=== PATIENT | male | born 1980 | race Caucasian/White ===

== ENCOUNTER 2019-03-26 22:22 | Observation (INO) ==
[2019-03-26] MEDS ORDERED: Dexamethasone 4 MG/ML VIAL IVP ONE (23:02)
[2019-03-26] MEDS ORDERED: Ipratropium/Albuterol Neb 3 ML IH ONE (23:02)
[2019-03-26] MEDS ORDERED: ALPRAZolam 0.25 MG TABLET PO ONE (23:04)
--- NOTE | 2019-03-26 23:04 | Emergency Department Note ---
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 Patient states that he has not been feeling well for the past several weeks, and 2 days ago he went to the pharmacy and picked up some azithromycin and prednisone. Normally the prednisone house with his shortness of breath but he did not feel any better yesterday or today. This morning he felt much worse and feels as though he cannot catch his breath. He denies fever, chills, increased cough, chest pain, abdominal pain, nausea and vomiting. He was 18 he had to have open heart surgery to remove his pericardium secondary to pericardial effusion. He also has asthma and anxiety. He does still smoke on a daily basis. - Related Data Home Medications Medication Instructions Recorded Confirmed Alprazolam [Xanax] 0.5 mg PO BID 09/10/15 03/26/19 Albuterol Sulfate [Proair Hfa] 2 puff IH Q4-6H PRN 03/19/19 03/26/19 Cholecalciferol (Vitamin D3) 50,000 unit PO QWEEK 03/19/19 03/26/19 [Vitamin D3] Fexofenadine/Pseudoephedrine 1 each PO DAILY 03/19/19 03/26/19 [Delmis-D 24 Hour Tablet] Ipratropium/Albuterol Neb [Duoneb] 3 ml IH Q6HR PRN 03/19/19 03/26/19 Montelukast [Singulair] 10 mg PO DAILY 03/19/19 03/26/19 Omeprazole [PriLOSEC] 20 mg PO DAILY 03/19/19 03/26/19 Ondansetron HCl [Zofran] 4 mg PO Q6-8H PRN 03/19/19 03/26/19 Tizanidine HCl [Zanaflex] 4 mg PO TID PRN 03/19/19 03/26/19 lamoTRIgine [Lamictal] 150 mg PO DAILY 03/19/19 03/26/19 Azithromycin [Zithromax] 1 tab PO DAILY 03/26/19 03/26/19 PredniSONE [Deltasone] 80 mg PO DAILY 03/26/19 03/26/19 Allergies Allergy/AdvReac Type Severity Reaction Status Date / Time Amoxicillin Allergy Rash Verified 03/26/19 22:36 Sulfa (Sulfonamide Allergy Swelling Verified 03/26/19 22:36 Antibiotics) of Lip/Tongue/Throat morphine AdvReac See Verified 03/26/19 22:36 Comments quetiapine [From Seroquel] AdvReac See Verified 03/26/19 22:36 Comments All systems ED: reviewed and negative except as stated. Review of Systems: As Per HPI Constitutional: Reports: chills, weakness. Denies: fever Cardiovascular: Reports: dyspnea on exertion. Denies: chest pain, palpitations, orthopnea, edema Respiratory: Reports: dyspnea, wheezes. Denies: cough, hemoptysis, stridor, sputum production Gastrointestinal: Denies: abdominal pain, nausea, vomiting Genitourinary: Denies: dysuria, hematuria Musculoskeletal: Denies: back pain Integumentary: Denies: rash Psychiatric: Reports: anxiety Past Medical History - Past Medical History Attestation: Yes The following information was validated with the patient. Source: patient, old records reviewed Medical history: Reports: asthma, COPD, hypertension Surgical history: Reports: other (pericardiumectomy at age 18) Psychiatric history: Reports: anxiety - Social History Smoking Status: Current every day smoker Smokeless Tobacco Status: No Alcohol use: Reports: none Drug use: Reports: none Physical Exam - General Limitations: no limitations General appearance: alert, in distress (mild distress) - Head Head exam: atraumatic, normocephalic - Eye Eye exam: Present: normal appearance, EOMI - ENT ENT exam: normal exam, normal oropharynx - Neck Neck exam: Present: normal inspection. Absent: tenderness, lymphadenopathy - Chest Chest inspection: Present: normal inspection. Absent: tenderness, rash - Respiratory Respiratory exam: Present: wheezes, other (crackles throughout all lung agosto) - Cardiovascular Cardiovascular exam: Present: regular rate, normal rhythm - Abdominal Exam Abdominal exam: Present: soft, Non-Tender. Absent: distention, guarding, rebound, rigidity - Extremities Exam Extremities exam: Present: normal inspection. Absent: tenderness, pedal edema, calf tenderness - Neurological Exam Neurological exam: Present: alert, oriented X3 - Psychiatric Psychiatric exam: Present: anxious - Skin Skin exam: Present: warm, dry, intact Course Vital Signs Temperature 98 F 03/26/19 22:30 Pulse Rate 89 03/26/19 22:30 Respiratory Rate 20 03/26/19 22:30 Blood Pressure 159/94 03/26/19 22:30 O2 Sat by Pulse Oximetry 99 03/26/19 22:30 Temperature 97.7 F 03/27/19 07:34 Pulse Rate 75 03/27/19 07:34 Respiratory Rate 12 03/27/19 07:59 Blood Pressure 132/78 03/27/19 07:34 O2 Sat by Pulse Oximetry 92 03/27/19 07:59 Oxygen Delivery Oxygen Delivery Room Air Shortness of Breath/Dyspnea - [facility] Narrative Medical decision making narrative: Patient presents with complaints of increased shortness of breath from baseline but his been progressing over the past several days. He is oriented been taking azithromycin and prednisone for the past 2 days but this has not helped. Patient is able to speak in full sentences without having to stop and catch his breath. His pulse ox is not depressed and his heart rate is within normal limits. We will obtain basic laboratory, chest x-ray, EKG and treat the patient shortness of breath with 2 nebs. Patient will get a shot of Decadron while here to see if I steroids will help with his breathing difficulties. 0035 - patient's lab work, EKG and chest x-ray are unremarkable. He is not feeling any better after his 3 duo nebs and the IV steroids. We will give him a dose of IV mag and do a CTA of his chest for a better look at his lungs and to rule out pulmonary embolus. Patient then will be admitted to the hospitalist service for further management of his acute dyspnea. 0050 - patient has been accepted by the hospitalist at this time. - Medical Records Medical records reviewed: Yes I reviewed the patient's medical records. - Lab Data Lab results reviewed: Yes I reviewed the patient's lab results. Result diagrams: 03/27/19 07:51 03/27/19 07:51 Lab Results 03/26/19 03/26/19 03/26/19 Range/Units 23:15 23:15 23:15 WBC 7.1 (4.3-11.1) K/mcL RBC 4.50 (4.19-5.50) M/mcL Hgb 14.4 (12.9-16.9) g/dL Hct 42.6 (37.5-50.1) % MCV 94.7 (83.0-100.0) fL MCH 32.0 (28.0-33.3) pg MCHC 33.8 (31.6-35.5) g/dL RDW 13.4 (11.5-14.5) % Plt Count 227 (140-400) K/mcL MPV 9.5 (9.4-12.4) fL Immature Gran % 0.4 (0-4) % Seg Neutrophils % 87.0 % Lymphocytes % 9.1 % Monocytes % 3.5 % Eosinophils % 0.0 % Basophils % 0.0 % Neutrophils # 6.2 (1.6-8.9) K/mcL Lymphocytes # 0.7 (0.6-4.6) K/mcL Monocytes # 0.3 (0.0-1.3) K/mcL Eosinophils # 0.0 (0.0-0.6) K/mcL Basophils # 0.0 (0.0-0.2) K/mcL Sodium 141 (136-145) mEq/L Potassium 3.7 (3.5-5.1) mEq/L Chloride 111 H (98-107) mEq/L Carbon Dioxide 22 L (23-29) mEq/L BUN 15 (6-20) mg/dL Creatinine 0.77 (0.70-1.30) mg/dL Est GFR ( Amer) > 60 (> 60) Est GFR (Non-Af Amer) > 60 (> 60) BUN/Creatinine Ratio 19 (6-26) Glucose 168 H (70-105) mg/dL Calculated Osmolality 297 (280-300) Calcium 9.1 (8.6-10.3) mg/dL Troponin I < 0.03 (< 0.04) ng/mL B-Natriuretic Peptide 237 H (Less than 100) pg/mL - Radiology Data Radiology results reviewed: Yes I reviewed the patient's radiology results. - EKG Data EKG attestation: Yes I reviewed and interpreted this EKG. EKG results narrative: EKG obtained at 22:34 on 03/26/2019 Heart rate 87 bpm, UT interval 113, QRS duration 90, QT 345, QTc 389 Sinus rhythm with shortened UT interval. No signs of ST segment elevations or depressions. No other obvious T-wave abnormalities. QRS is not widened. No significant changes when compared to previous EKG dated 03/19/2019. Attestation Statement - Attestation Attestation: I have seen this patient with the resident physician, I have personally evaluated this patient. I had reviewed the chart and document dictation by the resident physician and aM in agreement with the information documented by the resident physician. Please see documentation by the resident physician for comp lete chart including past medical history, family medical history, review of systems, current history and physical and laboratory and imaging studies. I was present for all procedures, provided direct supervision for all procedures, was present for the entirety of all procedures and provided direct guidance during the procedures. Please see documentation by the resident physician for any procedures performed. I have reviewed all interpretations of EKGs, and reviewed all EKGs performed on patient's as well. I have also reviewed reports of imaging as provided by radiology.
[2019-03-26 23:54] LABS: BUN/Creatinine Ratio 19 (6-26); Blood Urea Nitrogen 15 mg/dL (6-20); Calcium 9.1 mg/dL (8.6-10.3); Carbon Dioxide 22 mEq/L (23-29); Chloride 111 mEq/L (98-107); Glucose 168 mg/dL (70-105); Osmolality,Calculated 297 (280-300); Potassium 3.7 mEq/L (3.5-5.1); Sodium 141 mEq/L (136-145); eGFR For African Americans > 60 (> 60); eGFR For Non-African Americans > 60 (> 60)
[2019-03-26 23:55] LABS: Troponin I < 0.03 ng/mL (< 0.04)
[2019-03-26 23:59] LABS: Hematocrit 42.6 % (37.5-50.1); Hemoglobin 14.4 g/dL (12.9-16.9); Immature Granulocytes % 0.4 % (0-4); Lymphocytes # 0.7 K/mcL (0.6-4.6); Lymphocytes % 9.1 %; Mean Corpuscular HGB Conc 33.8 g/dL (31.6-35.5); Mean Corpuscular Volume 94.7 fL (83.0-100.0); Mean Platelet Volume 9.5 fL (9.4-12.4); Monocytes # 0.3 K/mcL (0.0-1.3); Monocytes % 3.5 %; Neutrophils # 6.2 K/mcL (1.6-8.9); Platelet Count 227 K/mcL (140-400); Red Cell Distribution Width 13.4 % (11.5-14.5); White Blood Count 7.1 K/mcL (4.3-11.1)
[2019-03-27] MEDS ORDERED: Isovue-370 500 ML BOTTLE IVP ONE (00:21)
[2019-03-27] MEDS ORDERED: cefTRIAXone 2,000 MG in Water for inj. (sterile) 20 ML IVP ONE (00:54)
--- NOTE | 2019-03-27 00:55 | Emergency Department Note ---
Disposition Clinical Impression: Acute exacerbation of chronic obstructive airways disease, Acute dyspnea, Flecw-[id number] deficiency Disposition: Admitted As Inpatient Condition: Fair Referrals: Faviola Thomas APN [Primary Care Provider] - Forms: ED Satisfaction Letter Time of Disposition: 00:56 General Adult HPI - General Chief complaint: ED Shortness of Breath/Dyspnea Stated complaint: MARYLOU Time Seen by Provider: 03/26/19 22:29 Source: patient Mode of arrival: ambulatory Limitations: no limitations - History of Present Illness Pain Scale: 6 - Related Data Home Medications Medication Instructions Recorded Confirmed Alprazolam [Xanax] 0.5 mg PO BID 09/10/15 03/26/19 Albuterol Sulfate [Proair Hfa] 2 puff IH Q4-6H PRN 03/19/19 03/26/19 Cholecalciferol (Vitamin D3) 50,000 unit PO QWEEK 03/19/19 03/26/19 [Vitamin D3] Fexofenadine/Pseudoephedrine 1 each PO DAILY 03/19/19 03/26/19 [Delmis-D 24 Hour Tablet] Ipratropium/Albuterol Neb [Duoneb] 3 ml IH Q6HR PRN 03/19/19 03/26/19 Montelukast [Singulair] 10 mg PO DAILY 03/19/19 03/26/19 Omeprazole [PriLOSEC] 20 mg PO DAILY 03/19/19 03/26/19 Ondansetron HCl [Zofran] 4 mg PO Q6-8H PRN 03/19/19 03/26/19 Tizanidine HCl [Zanaflex] 4 mg PO TID PRN 03/19/19 03/26/19 lamoTRIgine [Lamictal] 150 mg PO DAILY 03/19/19 03/26/19 Azithromycin [Zithromax] 1 tab PO DAILY 03/26/19 03/26/19 PredniSONE [Deltasone] 80 mg PO DAILY 03/26/19 03/26/19 Allergies Allergy/AdvReac Type Severity Reaction Status Date / Time Amoxicillin Allergy Rash Verified 03/26/19 22:36 Sulfa (Sulfonamide Allergy Swelling Verified 03/26/19 22:36 Antibiotics) of Lip/Tongue/Throat morphine AdvReac See Verified 03/26/19 22:36 Comments quetiapine [From Seroquel] AdvReac See Verified 03/26/19 22:36 Comments Constitutional: Reports: chills, weakness. Denies: fever Cardiovascular: Reports: dyspnea on exertion. Denies: chest pain, palpitations, orthopnea, edema Respiratory: Reports: dyspnea, wheezes. Denies: cough, hemoptysis, stridor, sputum production Gastrointestinal: Denies: abdominal pain, nausea, vomiting Genitourinary: Denies: dysuria, hematuria Musculoskeletal: Denies: back pain Integumentary: Denies: rash Psychiatric: Reports: anxiety Past Medical History - Past Medical History Medical history: Reports: asthma, COPD, hypertension Surgical history: Reports: other (pericardiumectomy at age 18) Psychiatric history: Reports: anxiety - Social History Smoking Status: Current every day smoker Smokeless Tobacco Status: No Alcohol use: Reports: none Drug use: Reports: none Physical Exam - General Limitations: no limitations General appearance: alert, in distress (mild distress) Course Vital Signs Temperature 98 F 03/26/19 22:30 Pulse Rate 89 03/26/19 22:30 Respiratory Rate 20 03/26/19 22:30 Blood Pressure 159/94 03/26/19 22:30 O2 Sat by Pulse Oximetry 99 03/26/19 22:30 Temperature 98 F 03/26/19 22:30 Pulse Rate 93 03/26/19 23:02 Respiratory Rate 24 03/26/19 23:02 Blood Pressure 159/95 03/26/19 23:02 O2 Sat by Pulse Oximetry 97 03/26/19 23:02 Oxygen Delivery Oxygen Delivery Room Air Medical Decision Making - Lab Data Result diagrams: 03/26/19 23:15 03/26/19 23:15 Lab Results 03/26/19 03/26/19 03/26/19 Range/Units 23:15 23:15 23:15 WBC 7.1 (4.3-11.1) K/mcL RBC 4.50 (4.19-5.50) M/mcL Hgb 14.4 (12.9-16.9) g/dL Hct 42.6 (37.5-50.1) % MCV 94.7 (83.0-100.0) fL MCH 32.0 (28.0-33.3) pg MCHC 33.8 (31.6-35.5) g/dL RDW 13.4 (11.5-14.5) % Plt Count 227 (140-400) K/mcL MPV 9.5 (9.4-12.4) fL Immature Gran % 0.4 (0-4) % Seg Neutrophils % 87.0 % Lymphocytes % 9.1 % Monocytes % 3.5 % Eosinophils % 0.0 % Basophils % 0.0 % Neutrophils # 6.2 (1.6-8.9) K/mcL Lymphocytes # 0.7 (0.6-4.6) K/mcL Monocytes # 0.3 (0.0-1.3) K/mcL Eosinophils # 0.0 (0.0-0.6) K/mcL Basophils # 0.0 (0.0-0.2) K/mcL Sodium 141 (136-145) mEq/L Potassium 3.7 (3.5-5.1) mEq/L Chloride 111 H (98-107) mEq/L Carbon Dioxide 22 L (23-29) mEq/L BUN 15 (6-20) mg/dL Creatinine 0.77 (0.70-1.30) mg/dL Est GFR ( Amer) > 60 (> 60) Est GFR (Non-Af Amer) > 60 (> 60) BUN/Creatinine Ratio 19 (6-26) Glucose 168 H (70-105) mg/dL Calculated Osmolality 297 (280-300) Calcium 9.1 (8.6-10.3) mg/dL Troponin I < 0.03 (< 0.04) ng/mL B-Natriuretic Peptide 237 H (Less than 100) pg/mL Attestation Statement - Attestation Attestation: I have seen this patient with the resident physician, I have personally evaluated this patient. I had reviewed the chart and document dictation by the resident physician and aM in agreement with the information documented by the resident physician. Please see documentation by the resident physician for complete chart including past medical history, family medical history, review of systems, current history and physical and laboratory and imaging studies. I was present for all procedures, provided direct supervision for all procedures, was present for the entirety of all procedures and provided direct guidance during the procedures. Please see documentation by the resident physician for any procedures performed. I have reviewed all interpretations of EKGs, and reviewed all EKGs performed on patient's as well. I have also reviewed reports of imaging as provided by radiology. Patient presented emergency department with chief complaint of shortness of breath. He states that he has a history of COPD and bronchitis, he was a 3-1/2 pack a day smoker, down to half pack. He states that he is having progressive lung problems for a couple of years finally convinced his doctor sent him to a fiscal manager, fiscal manager saw him, he is seen him a few times, recently had tests that confirmed that he has alpha-1 antitrypsin disorder. He states typically when he gets steroids and antibiotics every now again when he flares up that he can do very well he states that over the last few days he touches progressive increasing shortness of breath which is very unusual he started on steroids and Zithromax as called in by his fiscal manager but states it is no better. Patient had diffuse coarse wheezes auscultated throughout his lungs, prolonged expiratory phase, tachypnea without retractions or accessory muscle use. Cardiovascular regular rate and rhythm no murmurs rubs or gallops or JVD. No peripheral edema no evidence of DVT. Patient was given breathing treatments, and steroids with no significant improvement of his symptoms, slightly improved aeration was still diffuse terrible sounds throughout his lungs with coarseness all throughout his lungs. He had already had Zithromax today he was given 1 dose of IV Rocephin on top of this, he is given IV magnesium as well. Secondary to the patient not having any recent CT imaging, and him reporting that his fiscal manager also wants him to have a CT with IV contrast which he has not had so a CT PE protocol was ordered to further define acute intrathoracic processes and the patient was admitted to the hospital for further evaluation and management, the hospitalist will follow up on CT scan findings, as well as my colleague emergency department and will notify the hospitalist.
[2019-03-27] MEDS ORDERED: Naloxone 0.4 MG/ML INJ IVP PRN (05:56)
--- NOTE | 2019-03-27 06:03 | Internal Med History&Physical ---
Date of Encounter: 03/27/19 Time of Encounter: 04:30 Internal Medicine - H&P: HPI Chief complaint: Shortness of breath Admitted From: Home Plans for Post Hospital Care: Home History of present illness: Mr. Nicole is a 38 year old male with past medical history significant for COPD, asthma, alpha-1 antitrypsin deficiency, chronic back pain, anxiety, and PTSD who presents for complaints of worsening shortness of breath. Follows regularly with pulmonology who started him on prednisone and azithromycin 2 days ago which normally improves his symptoms however states his symptoms continues to worsen. Shortness of breath is associated with productive cough with white/yellow frothy sputum. Also reports chest pain with cough. Reports shortness of breath is worse with exertion. ER reported EKG as sinus rhythm with short OR interval, no signs of ST segment elevations or depressions, no other obvious T-wave abnormalities, and no significant changes when compared to previous EKG. ER obtained chest x-ray which showed no acute abnormality. ER also obtained CTA of the chest which was negative for acute pulmonary embolism, advanced centrilobular and paraseptal emphysema with bullous deformity, diffuse airway inflammation with dependent airway secretions query aspiration risk, and previously seen clustered nodularity in the left lower lobe which has resolved. While in ER patient received breathing treatment, ceftriaxone, decadron, and magnesium and he reports slight improvement in his symptoms. Patient currently denies any headache, chest pain, abdominal pain, nausea, bowel or bladder changes. Follows regularly with PCP, pulmonology, orthopedics, and psychiatry. Denies any home oxygen use, although he reports currently being set up for home oxygen. Reports continuing to smoke cigarettes daily, however has decreased down to around a half pack per day. Past Med Surg Social Fam HX - Past Medical History Medical history: asthma, COPD, hypertension Additional medical history: Emphysema. alpha 1 antitrypsin deficiency. chronic back pain Psychiatric history: anxiety, PTSD - Past Surgical History Surgical History: other (pericardiumectomy at age 18) Additional surgical history: Pericarderectomy, umbilical hernia repair - Social History Smoking Status: Current every day smoker Smokeless Tobacco Status: No Alcohol use: none Drug use: none - Family History Mother Adopted: No Living Status: Still Living Hx Family Cardiac Disorders: No Hx Family Respiratory Disorders: Yes (Ashtma, COPD) Hx Family Cancer: Yes (brain cancer, mother's family) Hx Family GI Disorders: No Hx Family Genitourinary Disorders: No Hx Family Endocrine Disorder: Yes (DM) Hx Family Musculoskeletal Disorders: No Hx Family Neuromuscular Disorders: No Hx Family Neurologic Disorders: No Hx Family HEENT Disorders: No Hx Family Autoimmune Disorders: Yes (A1 antitrypsin deficiency) Hx Family Reproductive Disorders: No Hx Family Psychosocial Disorders: No Hx Family Medical Disorders: No Internal Medicine - H&P: Meds Alprazolam [Xanax] 0.5 mg PO BID 09/10/15 [History] Albuterol Sulfate [Proair Hfa] 2 puff IH Q4-6H PRN 03/19/19 [History] Cholecalciferol (Vitamin D3) [Vitamin D3] 50,000 unit PO QWEEK 03/19/19 [History] Fexofenadine/Pseudoephedrine [Delmis-D 24 Hour Tablet] 1 each PO DAILY 03/19/19 [History] Ipratropium/Albuterol Neb [Duoneb] 3 ml IH Q6HR PRN 03/19/19 [History] Montelukast [Singulair] 10 mg PO DAILY 03/19/19 [History] Omeprazole [PriLOSEC] 20 mg PO DAILY 03/19/19 [History] Ondansetron HCl [Zofran] 4 mg PO Q6-8H PRN 03/19/19 [History] Tizanidine HCl [Zanaflex] 4 mg PO TID PRN 03/19/19 [History] lamoTRIgine [Lamictal] 150 mg PO DAILY 03/19/19 [History] Azithromycin [Zithromax] 1 tab PO DAILY 03/26/19 [History] PredniSONE [Deltasone] 80 mg PO DAILY 03/26/19 [History] Allergy/AdvReac Type Severity Reaction Status Date / Time Amoxicillin Allergy Rash Verified 03/26/19 22:36 Sulfa (Sulfonamide Allergy Swelling Verified 03/26/19 22:36 Antibiotics) of Lip/Tongue/Throat morphine AdvReac See Verified 03/26/19 22:36 Comments quetiapine [From Seroquel] AdvReac See Verified 03/26/19 22:36 Comments All Systems PM: A 10-system review of systems was performed and is negative for pertinent findings except as documented above in the HPI. - Constitutional Vitals: Temp Pulse Resp BP Pulse Ox 97.8 F 91 16 136/85 95 03/27/19 03:24 03/27/19 03:24 03/27/19 03:24 03/27/19 03:24 03/27/19 03:24 Exam: General: Alert and oriented. In no acute distress. Skin:Normal color, no rash, no lesions. HEENT:Pupils equal, round and reactive. Cardiovascular:Normal S1 & S2, no rubs, murmurs or gallops. No JVD. Pulse regular. Lungs:Breath sounds decreased, wheezes noted throughout. Respirations non labored. Abdomen:Soft, non-tender, no rigidity. Extremities:No deformity, no edema or tenderness, no joint swelling or clubbing. Neurological:Normal cognition and motor skills. Pulses:Carotid and radial pulses normal +2. Rest of the physical exam is non contributory. Internal Med - H&P Results - Labs CBC & Chem 7: 03/26/19 23:15 03/26/19 23:15 Labs: Short CBC 03/26/19 Range/Units 23:15 WBC 7.1 (4.3-11.1) K/mcL Hgb 14.4 (12.9-16.9) g/dL Hct 42.6 (37.5-50.1) % Plt Count 227 (140-400) K/mcL Neutrophils # 6.2 (1.6-8.9) K/mcL BMP 03/26/19 23:15 Sodium 141 Potassium 3.7 Chloride 111 H Carbon Dioxide 22 L BUN 15 Creatinine 0.77 Glucose 168 H Calcium 9.1 Cardiac Enzymes 03/26/19 Range/Units 23:15 Troponin I < 0.03 (< 0.04) ng/mL - Impressions ITS Impressions Chest X-Ray 03/26/19 22:37 IMPRESSION: No acute abnormality detected. D/ / Cristobal Gibson MD / Cristobal Gibson MD Interpreting Provider: Cristobal Gibson MD Chest CTA 03/27/19 00:21 IMPRESSION: Negative for acute pulmonary embolism. Advanced centrilobular and paraseptal emphysema with bullous deformity. Diffuse airway inflammation with dependent airways secretions. Query aspiration risk. Previously seen clustered nodularity in the left lower lobe has resolved. D/ / Waldemar Cortez / Waldemar Cortez Interpreting Provider: Waldemar Cortez - Assessment and Plan (1) Shortness of breath Current Visit: Yes Status: Acute Assessment and plan: Continuous cardiac and pulse oximetry monitoring. Oxygen as needed. IV steroids given in ER, continue same. DuoNeb was given in ER, continue same. Ceftriaxone started in ER, will continue same. Pulmonary consult ordered, will need called in a.m. (2) Acute exacerbation of chronic obstructive airways disease Current Visit: Yes Status: Acute Assessment and plan: Plan as stated above. (3) Anxiety Current Visit: Yes Status: Chronic Assessment and plan: Continue home medications once verified. (4) Hypertension Current Visit: Yes Status: Chronic Assessment and plan: Continue home medications once verified. Qualifiers: Hypertension type: unspecified Qualified Code(s): I10 - Essential (primary) hypertension (5) Tobacco abuse Current Visit: Yes Status: Chronic Assessment and plan: Cessation strongly encouraged. Nicorette gum ordered as needed. - Time Spent With Patient Total time spent is greater than 50% in coordination of care (as documented) at patient's floor/unit and/or counseling patient:
--- NOTE | 2019-03-27 06:36 | Pulmonology Consult Note ---
Date of Encounter: 03/27/19 Time of Encounter: 06:36 Assessment and Plan (1) Acute exacerbation of chronic obstructive airways disease Current Visit: Yes Status: Acute Appears to be improving continue IV steroids today methylprednisolone 60 mg every 8 hours and this can be transitioned to oral prednisone to complete a prolonged six-week taper starting at 40 mg and taper by 10 mg weekly I will continue to taper and determine how long when I see him back in clinic. He should be on Symbicort 160/4.52 puffs twice a day while here in the hospital and will need DuoNeb bronchodilator treatments scheduled every 4 hours with hourly albuterol as needed. Agree with azithromycin for anti-inflammatory properties in addition of set off a respiratory infection panel would also send protocol calcitonin sputum culture as well (2) Uwhrj-1-jxwkianetgv deficiency Current Visit: Yes Status: Acute I would over in great detail the diagnosis and management of alpha-1 antitrypsin deficiency plan is to start augmentation therapy but likely to be qualified for program patient would have to have stop smoking. He will also need PFTs performed (3) Tobacco abuse Current Visit: Yes Status: Chronic I had the an extensive conversation with the patient and his along with mother in the room today explaining that it is truly a matter life and that Escobar stop smoking we have started the process of getting him covered for a nicotine replacement would recommend nicotine patch while in the hospital as he has not tolerated the gum very well but has been ordered for him. Also be imperative that his anxiety is fully managed high in order to facilitate his tobacco cessation (4) Anxiety Current Visit: Yes Status: Chronic Continue to follow up with outpatient psychiatrist Thank you very much for consultation I will check in on Scott tomorrow to see how he is doing can likely be discharged tomorrow if feeling better and I will follow-up with clinic visits within 2 weeks at the time of discharge History of Present Illness Consult date: 03/27/19 Requesting physician: Jadiel Salazar Reason for consult: COPD Chief complaint: Difficulty in Breathing History of present illness: The patient is a very pleasant 38-year-old gentleman well-known to me to perform clinic where I am 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 Patient is only 38 years of age and has extensive emphysematous changes tests are pending at this time but expect advanced obstructive lung disease. Un fortunately the patient continues to smoke heavily field and large part by his anxiety he is trying desperately to quit smoking however and has been able to get down under a half a pack a day. He follows with a psychiatrist over the [place] is also been working on his antianxiety medications. As a part of evaluation for hit the severity of his underlying emphysematous changes in his lung I sent off alpha-1 antitrypsin level with reflex genetic testing this came back, PiZZ homozygous and his alpha-1 level was less than 25 this diagnosis was made last week and I notified the patient plan was for clinic follow-up today to discuss the results and next steps and he had been describing to me on the phone yesterday that he is having worsening shortness of breath to straight using a macrolide antibiotic and oral prednisone I told him if his breathing symptoms have gotten worse overnight to go immediately to the emergency room and that is when he did workup there included a CT angiogram was performed without evidence of filling defect patient has been treated for COPD exacerbation pulmonary was consulted for further recommendations. In speaking with her today he states that he is breathing a lot better after getting IV steroids and breathing treatments he does have a cough but is nonproductive at this time denies any hemoptysis he does not endorse unintentional weight loss and this has been an ongoing issue for him for several months. Past Med Surg Social Fam HX - Past Medical History Medical history: asthma, COPD, hypertension Additional medical history: Emphysema. alpha 1 antitrypsin deficiency. chronic back pain Psychiatric history: anxiety, PTSD - Past Surgical History Surgical History: other (pericardiumectomy at age 18) Additional surgical history: Pericarderectomy, umbilical hernia repair - Social History Smoking Status: Current every day smoker Smokeless Tobacco Status: No Alcohol use: none Drug use: none - Family History Mother Adopted: No Living Status: Still Living Hx Family Cardiac Disorders: No Hx Family Respiratory Disorders: Yes (Ashtma, COPD) Hx Family Cancer: Yes (brain cancer, mother's family) Hx Family GI Disorders: No Hx Family Genitourinary Disorders: No Hx Family Endocrine Disorder: Yes (DM) Hx Family Musculoskeletal Disorders: No Hx Family Neuromuscular Disorders: No Hx Family Neurologic Disorders: No Hx Family HEENT Disorders: No Hx Family Autoimmune Disorders: Yes (A1 antitrypsin deficiency) Hx Family Reproductive Disorders: No Hx Family Psychosocial Disorders: No Hx Family Medical Disorders: No Medications and Allergies Alprazolam [Xanax] 0.5 mg PO BID 09/10/15 [History] Albuterol Sulfate [Proair Hfa] 2 puff IH Q4-6H PRN 03/19/19 [History] Cholecalciferol (Vitamin D3) [Vitamin D3] 50,000 unit PO QWEEK 03/19/19 [History] Fexofenadine/Pseudoephedrine [Delmis-D 24 Hour Tablet] 1 each PO DAILY 03/19/19 [History] Ipratropium/Albuterol Neb [Duoneb] 3 ml IH Q6HR PRN 03/19/19 [History] Montelukast [Singulair] 10 mg PO DAILY 03/19/19 [History] Omeprazole [PriLOSEC] 20 mg PO DAILY 03/19/19 [History] Ondansetron HCl [Zofran] 4 mg PO Q6-8H PRN 03/19/19 [History] Tizanidine HCl [Zanaflex] 4 mg PO TID PRN 03/19/19 [History] lamoTRIgine [Lamictal] 150 mg PO DAILY 03/19/19 [History] Azithromycin [Zithromax] 1 tab PO DAILY 03/26/19 [History] PredniSONE [Deltasone] 80 mg PO DAILY 03/26/19 [History] Allergy/AdvReac Type Severity Reaction Status Date / Time Amoxicillin Allergy Rash Verified 03/26/19 22:36 Sulfa (Sulfonamide Allergy Swelling Verified 03/26/19 22:36 Antibiotics) of Lip/Tongue/Throat morphine AdvReac See Verified 03/26/19 22:36 Comments quetiapine [From Seroquel] AdvReac See Verified 03/26/19 22:36 Comments All Systems: The remainder of the systems were reviewed and are negative Physical Examination Vital Signs: Vital Signs, Last 4 Hours Temp Pulse Resp BP Pulse Ox 03/27/19 03:24 97.8 F 91 16 136/85 95 General appearance: no acute distress Eyes: nonicteric ENT: oropharynx moist Auscultation: bilateral: diminished breath sounds, wheezes (prolonged exp phase ) Cardiovascular: regular rate and rhythm Gastrointestinal: normoactive bowel sounds, absent bowel sounds, hypoactive bowel sounds Integumentary: normal Extremities: no cyanosis, no edema, no clubbing Musculoskeletal: no deformities normal mental status, non-focal exam, pupils equal and round mood appropriate Results - Laboratory Findings CBC and BMP: 03/27/19 07:51 03/27/19 07:51 Abnormal lab findings: Abnormal lab results Chloride 111 mEq/L (98-107) H 03/26/19 23:15 Carbon Dioxide 22 mEq/L (23-29) L 03/26/19 23:15 Glucose 168 mg/dL (70-105) H 03/26/19 23:15 B-Natriuretic Peptide 237 pg/mL (Less than 100) H 03/26/19 23:15 - Diagnostic Findings Chest x-ray: report reviewed, image reviewed CT scan - chest: report reviewed, image reviewed - Clinical Findings Intake & Output: Intake & Output 03/26/19 03/26/19 03/27/19 15:59 23:59 07:59 Intake Total 154 / 154 Balance 154 / 154 Weight 69.853 kg 70.364 kg Consult Discharge Plan - Plan Referrals: Faviola Thomas APN [Primary Care Provider] -
[2019-03-27] MEDS: Ipratropium/Albuterol Neb 3 ML IH SCH ×5 (07:59→23:48)
[2019-03-27 08:05] LABS: Hematocrit 42.3 % (37.5-50.1); Hemoglobin 14.3 g/dL (12.9-16.9); Immature Granulocytes % 0.5 % (0-4); Lymphocytes # 0.6 K/mcL (0.6-4.6); Lymphocytes % 5.7 %; Mean Corpuscular HGB Conc 33.8 g/dL (31.6-35.5); Mean Corpuscular Hemoglobin 31.9 pg (28.0-33.3); Mean Corpuscular Volume 94.4 fL (83.0-100.0); Mean Platelet Volume 9.5 fL (9.4-12.4); Monocytes # 0.1 K/mcL (0.0-1.3); Monocytes % 1.1 %; Neutrophils # 9.4 K/mcL (1.6-8.9); Platelet Count 220 K/mcL (140-400); Red Blood Count 4.48 M/mcL (4.19-5.50); Red Cell Distribution Width 13.4 % (11.5-14.5); Segmented Neutrophils % 92.7 %; White Blood Count 10.1 K/mcL (4.3-11.1)
[2019-03-27 08:22] LABS: BUN/Creatinine Ratio 17 (6-26); Blood Urea Nitrogen 12 mg/dL (6-20); Calcium 8.7 mg/dL (8.6-10.3); Carbon Dioxide 24 mEq/L (23-29); Chloride 109 mEq/L (98-107); Glucose 191 mg/dL (70-105); Osmolality,Calculated 291 (280-300); Potassium 3.5 mEq/L (3.5-5.1); Sodium 138 mEq/L (136-145); eGFR For African Americans > 60 (> 60); eGFR For Non-African Americans > 60 (> 60)
[2019-03-27] MEDS: Nicotine 2 MG GUM BC PRN ×2 (10:23→20:07)
[2019-03-27] MEDS: Azithromycin 250 MG TABLET PO SCH (10:23)
[2019-03-27] MEDS: Nicotine 21 MG PATCH.TD24 TD SCH ×2 (10:47→14:39)
--- NOTE | 2019-03-27 12:26 | Event Note ---
Date of Encounter: 03/27/19 Time of Encounter: 12:25 Patient states that his breathing is somewhat better today. He denies any fevers or chills overnight. Shortness of breath has improved overall. No chest pain or palpitations. Patient requesting nicotine gum instead of nicotine patch.
--- NOTE | 2019-03-27 12:39 | Electrocardiograph Report ---
[facility] [place] Test Date: 2019-03-26 Pat Name: Escobar Nicole Department: 104 Room: 3B24 Gender: M General Partner: : 1980 Requested By: Mattie Wagner Order Number: [id number] Reading MD: Pancho Espinosa Measurements Intervals [place] Rate: 87 P: 66 MN: 113 QRS: 62 QRSD: 90 T: 36 QT: 345 QTc: 389 Interpretive Statements SINUS RHYTHM Electronically Signed On 03-27-2019 12:38:04 EDT by Pancho Espinosa
[2019-03-27] MEDS ORDERED: Ondansetron ODT 4 MG TAB.RAPDIS PO PRN (13:05)
[2019-03-27] MEDS: lamoTRIgine 100 MG TABLET PO SCH (13:49)
[2019-03-27] MEDS: tiZANidine 4 MG TABLET PO PRN ×2 (13:57→22:15)
[2019-03-27] MEDS: ALPRAZolam 1 MG TABLET PO SCH ×2 (14:39→22:15)
[2019-03-27 19:41] LABS: Adenovirus Not Detected (Not Detect); Bordetella Pertussis Not Detected (Not Detect); Chlamydophila pneumoniae Not Detected (Not Detect); Coronavirus 229E Not Detected (Not Detect); Coronavirus HKU1 Not Detected (Not Detect); Coronavirus NL63 Not Detected (Not Detect); Coronavirus OC43 Not Detected (Not Detect); Human Metapneumovirus Not Detected (Not Detect); Human Rhinovirus/Enterovirus Not Detected (Not Detect); Influenza A Subtype 2009 H1 Not Detected (Not Detect); Influenza A Untypeable Not Detected (Not Detect); Influenza B Not Detected (Not Detect); Mycoplasma pneumoniae Not Detected (Not Detect); Parainfluenza Virus 1 Not Detected (Not Detect); Parainfluenza Virus 2 Not Detected (Not Detect); Parainfluenza Virus 3 Not Detected (Not Detect); Parainfluenza Virus 4 Not Detected (Not Detect); Respiratory Syncytial Virus Not Detected (Not Detect)
[2019-03-27] MEDS ORDERED: ALPRAZolam 1 MG TABLET PO SCH (21:00)
[2019-03-27] MEDS ORDERED: NON-FORMULARY MEDICATION 1 EACH EACH (Fluticasone/Umeclidin/Vilanter [Trelegy Ellipta 100- IH SCH (21:00)
[2019-03-27] MEDS: Budesonide/Formoterol 160/4.5 1 PUFF INH IH SCH (22:18)
[2019-03-28] MEDS: methylPREDNISolone 125 MG/2 ML VIAL IVP SCH ×3 (00:32→17:56)
[2019-03-28] MEDS: Ipratropium/Albuterol Neb 3 ML IH SCH ×7 (04:49→23:35)
[2019-03-28] MEDS ORDERED: cefTRIAXone 2,000 MG in Water for inj. (sterile) 20 ML IVP SCH (06:00)
--- NOTE | 2019-03-28 06:59 | Pulmonology Progress Note ---
Date of Encounter: 03/28/19 Time of Encounter: 06:59 Assessment and Plan (1) Acute exacerbation of chronic obstructive airways disease Current Visit: Yes Status: Acute Continue IV steroids today he will need to be transitioned in the next 24 hours to oral formulation of prednisone for a 6 weeks taper starting at 40 mg and decreasing by 10 mg weekly Continue schedule bronchodilators Symbicort 160/4.52 puffs twice a day Albuterol as needed hourly (2) Aslei-0-utxkbfifrdb deficiency Current Visit: Yes Status: Acute Plan to initiate augmentation therapy (3) Tobacco abuse Current Visit: Yes Status: Chronic Strongly encouraged the patient to remain tobacco free this is essentially a life or necessity (4) Anxiety Current Visit: Yes Status: Chronic Currently controlled outpatient follow-up with psychiatry Subjective Principal diagnosis: AECOPD Interval history: Per the patient had "burned some popcorn last night" than the smoke and caused his breathing to worse he is coughing up more phlegm today and feels that his breathing is in general not as good as it was yesterday. He has been intermittently using a nicotine patch with nicotine chewing gum after meals Objective PUL Vital signs: Last Vital Signs Temp 97.5 F L 03/28/19 00:09 Pulse 89 03/28/19 00:09 Resp 17 03/28/19 04:50 BP 134/83 03/28/19 00:09 Pulse Ox 99 03/28/19 04:50 General appearance: no acute distress Eyes: nonicteric ENT: oropharynx moist Auscultation: bilateral: diminished breath sounds, wheezes (exp wheezes noted ) Cardiovascular: regular rate and rhythm Gastrointestinal: normoactive bowel sounds Integumentary: normal Extremities: no cyanosis, no edema, no clubbing Musculoskeletal: no deformities normal mental status, non-focal exam mood appropriate Results - Laboratory Findings CBC and BMP: 03/27/19 07:51 03/27/19 07:51 Abnormal lab findings: Abnormal lab results 9.4 K/mcL (1.6-8.9) H 03/27/19 07:51 Chloride 109 mEq/L (98-107) H 03/27/19 07:51 Carbon Dioxide 22 mEq/L (23-29) L 03/26/19 23:15 Glucose 191 mg/dL (70-105) H 03/27/19 07:51 B-Natriuretic Peptide 237 pg/mL (Less than 100) H 03/26/19 23:15 - Microbiology Findings Microbiology Findings: Microbiology, Last 48 Hours 03/27/19 07:52 Blood Culture - Preliminary Peripheral Venipuncture Culture is incubating and being continuously monitored for growth. Final report to follow. 03/27/19 07:51 Blood Culture - Preliminary Peripheral Venipuncture Culture is incubating and being continuously monitored for growth. Final report to follow. - Clinical Findings Intake & Output: Intake & Output 03/27/19 03/27/19 03/28/19 15:59 23:59 07:59 Intake Total 500 / 894 240 / 894 Balance 500 / 894 240 / 894 Weight 70.5 kg Consult Discharge Plan - Plan Referrals: Faviola Thomas APN [Primary Care Provider] - 03/31/19 4:30 pm
[2019-03-28] MEDS: Budesonide/Formoterol 160/4.5 1 PUFF INH IH SCH ×2 (07:22→20:21)
[2019-03-28] MEDS: lamoTRIgine 100 MG TABLET PO SCH (08:09)
[2019-03-28] MEDS: Nicotine 21 MG PATCH.TD24 TD SCH (08:10)
[2019-03-28] MEDS: Azithromycin 250 MG TABLET PO SCH (08:12)
[2019-03-28] MEDS: ALPRAZolam 1 MG TABLET PO SCH ×2 (08:12→21:15)
[2019-03-28] MEDS: tiZANidine 4 MG TABLET PO PRN ×2 (08:12→21:16)
[2019-03-28] MEDS ORDERED: Ibuprofen 800 MG TABLET PO PRN (09:30)
[2019-03-28] MEDS: Nicotine 2 MG GUM BC PRN ×4 (10:05→23:46)
--- NOTE | 2019-03-28 11:18 | Internal Med Progress Note ---
Hospitalist Progress Note - Encounter Date of Encounter: 03/28/19 Time of Encounter: 08:35 - Subjective Interval History: Patient complaints of worsening shortness of breath this morning. Apparently his had some popcorn in the microwave which got burnt and he has had some trouble breathing since then but it is now improving. He did receive bronch odilator treatments earlier today. He does report cough with minimal phlegm. - Exam Vitals: Temp Pulse Resp BP Pulse Ox 97 F L 101 18 121/75 100 03/28/19 10:15 03/28/19 10:15 03/28/19 10:15 03/28/19 10:15 03/28/19 10:15 Exam: General: Patient is alert, moderate distress, oriented x 3 Respiratory: End expiratory wheezing Cardiovascular: Regular rate and rhythm. s1 and s2 normal No clicks, rubs, gallops, or murmurs. No pedal edema Abdomen: Abdomen is soft, nontender. Bowel sounds are present Musculoskeletal: Spontaneously moving all extremities Skin: warm, dry, intact. Neuro: Alert oriented x 3 normal cranial nerves, no focal deficits - Assessment and Plan (1) Acute exacerbation of chronic obstructive airways disease Current Visit: Yes Status: Acute (2) Shortness of breath Current Visit: Yes Status: Acute (3) Tobacco abuse Current Visit: Yes Status: Chronic (4) Anxiety Current Visit: Yes Status: Chronic (5) Hypertension Current Visit: Yes Status: Chronic DVT Prophylaxis: Started subcutaneous heparin - Summary of Assessment and Plan Summary of Assessment and Plan: Acute exacerbation of COPD: With underlying alpha-1 antitrypsin deficiency. Patient also has a chronic smoking history. Continue bronchodilators, Symbicort, intravenous steroids. As patient reports worsening shortness of breath today, will leave patient on intravenous steroids today and transition to oral steroids from tomorrow. Pulmonology recommendations reviewed. Plan to discharge patient on a long tapering course of steroids when medically stable. Continue azithromycin. Chronic tobacco abuse: Counseled about cessation. Patient willing to quit. Is currently on nicotine patch and nicotine gum. Essential hypertension: Blood pressure is well controlled. Anxiety disorder: Continue home dose of Xanax. Outpatient follow-up with psychiatry and possibly starting Wellbutrin as outpatient to help both for anxiety and with tobacco cessation. - Time Spent with Patient Total time spent is greater than 50% in coordination of care (as documented) at patient's floor/unit and/or counseling patient: Internal Medicine: Result - Labs CBC & Chem 7: 03/27/19 07:51 03/27/19 07:51 Consult Discharge Plan - Plan Referrals: Faviola Thomas APN [Primary Care Provider] - 03/31/19 4:30 pm (5) Hypertension Qualifiers: Hypertension type: unspecified Qualified Code(s): I10 - Essential (primary) hypertension
[2019-03-28] MEDS ORDERED: ALPRAZolam 0.5 MG TABLET PO STA (16:15)
[2019-03-28] MEDS: *HR* Heparin 5,000 UNIT/ML VIAL SQ SCH (18:08)
[2019-03-28] MEDS: Ibuprofen 600 MG TABLET PO PRN (20:26)
[2019-03-28] MEDS ORDERED: Patient Taking Own Medication 1 EACH PO SCH (21:00)
[2019-03-28] MEDS: Loratadine/Pseudophed (12 HR) 1 EACH TABLET PO SCH (21:16)
[2019-03-28] MEDS: Lactobacillus 1 EACH CAP.SPRINK PO SCH (21:16)
[2019-03-29] MEDS: tiZANidine 4 MG TABLET PO PRN ×2 (02:33→09:43)
[2019-03-29] MEDS: Ipratropium/Albuterol Neb 3 ML IH SCH ×4 (03:58→15:11)
[2019-03-29] MEDS: methylPREDNISolone 125 MG/2 ML VIAL IVP SCH (06:13)
[2019-03-29] MEDS: *HR* Heparin 5,000 UNIT/ML VIAL SQ SCH (06:14)
--- NOTE | 2019-03-29 06:36 | Pulmonology Progress Note ---
Date of Encounter: 03/29/19 Time of Encounter: 06:36 Assessment and Plan (1) Acute exacerbation of chronic obstructive airways disease Current Visit: Yes Status: Acute Continue IV steroids today he will need to be transitioned in the next 24 hours to oral formulation of prednisone for a 6 weeks taper starting at 40 mg and decreasing by 10 mg weekly (have called this into his pharmacy) Continue schedule bronchodilators Symbicort 160/4.52 puffs twice a day Albuterol as needed hourly Azithromycin 5 days (2) Yefrb-4-qbxgcimzbcm deficiency Current Visit: Yes Status: Acute Plan to initiate augmentation therapy (3) Tobacco abuse Current Visit: Yes Status: Chronic Strongly encouraged the patient to remain tobacco free this is essentially a life or necessity (4) Anxiety Current Visit: Yes Status: Chronic Currently controlled outpatient follow-up with psychiatry I have a follow-up appointment scheduled with Escobar in the next couple weeks in clinic and will take care of his outpatient arrangements he is cleared for discharge from pulmonary perspective thank you for the consultation Subjective Principal diagnosis: AECOPD Interval history: Tells me that he is feeling a little bit better today he is interested in trying to get back home today and feels that he is ready Objective PUL Vital signs: Last Vital Signs Temp 97.8 F 03/29/19 03:34 Pulse 95 03/29/19 03:34 Resp 16 03/29/19 03:34 BP 134/83 03/29/19 03:34 Pulse Ox 97 03/29/19 03:34 General appearance: no acute distress Eyes: nonicteric Auscultation: bilateral: wheezes (Expiratory wheezes with a prolonged expiratory phase) Cardiovascular: regular rate and rhythm Gastrointestinal: normoactive bowel sounds, soft, non-tender Integumentary: normal Extremities: no cyanosis, no edema, no clubbing Musculoskeletal: no deformities normal mental status, non-focal exam mood appropriate Results - Laboratory Findings CBC and BMP: 03/27/19 07:51 03/27/19 07:51 Abnormal lab findings: Abnormal lab results 9.4 K/mcL (1.6-8.9) H 03/27/19 07:51 Chloride 109 mEq/L (98-107) H 03/27/19 07:51 Carbon Dioxide 22 mEq/L (23-29) L 03/26/19 23:15 Glucose 191 mg/dL (70-105) H 03/27/19 07:51 B-Natriuretic Peptide 237 pg/mL (Less than 100) H 03/26/19 23:15 - Microbiology Findings Microbiology Findings: Microbiology, Last 48 Hours 03/27/19 07:52 Blood Culture - Preliminary Peripheral Venipuncture Culture is incubating and being continuously m onitored for growth. Final report to follow. 03/27/19 07:51 Blood Culture - Preliminary Peripheral Venipuncture Culture is incubating and being continuously monitored for growth. Final report to follow. - Clinical Findings Intake & Output: Intake & Output 03/28/19 03/28/19 03/29/19 15:59 23:59 07:59 Intake Total 600 / 600 Balance 600 / 600 Consult Discharge Plan - Plan Referrals: Faviola Thomas APN [Primary Care Provider] - 03/31/19 4:30 pm
[2019-03-29] MEDS: Budesonide/Formoterol 160/4.5 1 PUFF INH IH SCH (07:23)
[2019-03-29] MEDS: Loratadine/Pseudophed (12 HR) 1 EACH TABLET PO SCH (09:28)
[2019-03-29] MEDS: Nicotine 21 MG PATCH.TD24 TD SCH (09:28)
[2019-03-29] MEDS: lamoTRIgine 100 MG TABLET PO SCH (09:29)
[2019-03-29] MEDS: ALPRAZolam 1 MG TABLET PO SCH ×2 (09:29→15:02)
[2019-03-29] MEDS: Azithromycin 250 MG TABLET PO SCH (09:29)
[2019-03-29] MEDS: Lactobacillus 1 EACH CAP.SPRINK PO SCH (09:29)
[2019-03-29] MEDS: Nicotine 2 MG GUM BC PRN ×2 (09:43→15:02)
--- NOTE | 2019-03-29 11:16 | Discharge Summary ---
- NOTES TO OUTPATIENT PROVIDER Notes to Outpatient Provider: Patient with history of COPD and newly diagnosed alpha-1 antitrypsin deficiency was hospitalized here with acute COPD exacerbation. He was treated with bronchodilators, steroids and initially also required O2 supplementation. He was also prescribed azithromycin to help treat his COPD exacerbation. With aggressive management, his symptoms have improved. He has been cleared for discharge by pulmonology and will follow up with them as outpatient. He will continue to take slow taper of steroids and will complete 5 day course of azithromycin. Orders not resulted at time of discharge: Pending orders 03/27/19 06:24 Sputum Culture [Culture,Sputum with Gram Stain] [RM] Routine 03/27/19 07:52 Culture,Blood [BC] Routine Date of Encounter: 03/29/19 Time of Encounter: 11:13 - Discharge Diagnosis (1) Acute exacerbation of chronic obstructive airways disease Priority: Primary Status: Acute (2) Shortness of breath Priority: Secondary Status: Acute (3) Tobacco abuse Priority: Secondary Status: Chronic (4) Anxiety Priority: Secondary Status: Chronic (5) Hypertension Priority: Secondary Status: Chronic Qualifiers: Hypertension type: unspecified Qualified Code(s): I10 - Essential (primary) hypertension (6) Fubmv-8-dgbbrbqzaqa deficiency Priority: Secondary Status: Chronic Hospital course: Mr. Nicole is a 38 year old male Patient with history of COPD and newly diagnosed alpha-1 antitrypsin deficiency was hospitalized here with acute COPD exacerbation. He was treated with bronchodilators, steroids and initially also required O2 supplementation. He was also prescribed azithromycin to help treat his COPD exacerbation. With aggressive management, his symptoms have improved. He has been cleared for discharge by pulmonology and will follow up with them as outpatient. He will continue to take slow taper of steroids ( 6 week taper starting at 40 mg and decreasing by 10 mg weekly) and will complete 5 day course of azithromycin. Discharge discussed with: patient, family - Time Spent with Patient Total time spent providing and/or coordinating discharge services: Time spent: Less than 30 minutes (25 min) - Discharge Medications Prescriptions: New Lactobacillus [Culturelle] 1 each PO BID #30 cap.sprink Continued PredniSONE [Deltasone] 40 mg PO DAILY Azithromycin [Zithromax] 1 tab PO DAILY Fexofenadine HCl 180 mg PO DAILY Fluticasone/Umeclidin/Vilanter [Trelegy Ellipta 100-62.5-25] 1 puff IH DAILY Fexofenadine/Pseudoephedrine [Delmis-D 24 Hour Tablet] 1 each PO DAILY Alprazolam [Xanax] 0.5 mg PO BID Tizanidine HCl [Zanaflex] 4 mg PO TID PRN PRN Reason: Muscle Spasm Ondansetron HCl [Zofran] 4 mg PO TID PRN PRN Reason: Nausea Omeprazole [PriLOSEC] 20 mg PO DAILY Montelukast [Singulair] 10 mg PO DAILY lamoTRIgine [Lamictal] 150 mg PO DAILY Ipratropium/Albuterol Neb [Duoneb] 3 ml IH Q6HR PRN PRN Reason: Wheezing Albuterol Sulfate [Proair Hfa] 2 puff IH Q4-6H PRN PRN Reason: Wheezing Cholecalciferol (Vitamin D3) [Vitamin D3] 50,000 unit PO TH Home Medications: Alprazolam [Xanax] 0.5 mg PO BID 09/10/15 [History] Albuterol Sulfate [Proair Hfa] 2 puff IH Q4-6H PRN 03/19/19 [History] Cholecalciferol (Vitamin D3) [Vitamin D3] 50,000 unit PO TH 03/19/19 [History] Ipratropium/Albuterol Neb [Duoneb] 3 ml IH Q6HR PRN 03/19/19 [History] Montelukast [Singulair] 10 mg PO DAILY 03/19/19 [History] Omeprazole [PriLOSEC] 20 mg PO DAILY 03/19/19 [History] Ondansetron HCl [Zofran] 4 mg PO TID PRN 03/19/19 [History] Tizanidine HCl [Zanaflex] 4 mg PO TID PRN 03/19/19 [History] lamoTRIgine [Lamictal] 150 mg PO DAILY 03/19/19 [History] Azithromycin [Zithromax] 1 tab PO DAILY 03/26/19 [History] PredniSONE [Deltasone] 40 mg PO DAILY 03/26/19 [History] Fexofenadine HCl 180 mg PO DAILY 03/27/19 [History] Fluticasone/Umeclidin/Vilanter [Trelegy Ellipta 100-62.5-25] 1 puff IH DAILY 03/27/19 [History] Fexofenadine/Pseudoephedrine [Delmis-D 24 Hour Tablet] 1 each PO DAILY 03/28/19 [History] Lactobacillus [Culturelle] 1 each PO BID #30 cap.sprink 03/29/19 [Rx] Allergies/Adverse Reactions: 3 Allergy/AdvReac Type Severity Reaction Status Date / Time Amoxicillin Allergy Rash Verified 03/26/19 22:36 Sulfa (Sulfonamide Allergy Swelling Verified 03/26/19 22:36 Antibiotics) of Lip/Tongue/Throat morphine AdvReac See Verified 03/26/19 22:36 Comments quetiapine [From Seroquel] AdvReac See Verified 03/26/19 22:36 Comments Date of admission: 03/27/19 00:59 Primary care physician: Faviola Thomas APN Consults: 03/27/19 03:38 Consult to [employer] [CONS] Routine Reason for SW Consult: home O2 03/27/19 05:58 Consult to Pulmonology [CONS] Routine Consulting Provider: [facility] Carolyn Reason for Consult: Presents for worsening shortness of breath. History of COPD with alpha one antitrypsin deficiency. Follows regularly with Dr Gao and was started on azithromycin and prednisone outpatient 2 days ago without improvement. Call Completed: No 03/27/19 08:14 Consult to Nurse Navigator [CONS] Routine Comment: COPD Discharging clinician: Tasneem Harris Anticipated date of discharge: 03/29/19 - Constitutional Vitals: Temp Pulse Resp BP Pulse Ox 97.6 F 92 18 130/71 96 03/29/19 07:51 03/29/19 07:51 03/29/19 10:53 03/29/19 07:51 03/29/19 10:53 Exam: General: Patient is alert, no acute distress, oriented x 3 Respiratory: Mild end expiratory wheezing. Improved air entry bilaterally Cardiovascular: Regular rate and rhythm. s1 and s2 normal No clicks, rubs, gallops, or murmurs. No pedal edema Abdomen: Abdomen is soft, nontender. Bowel sounds are present Musculoskeletal: Spontaneously moving all extremities Skin: warm, dry, intact. Neuro: Alert oriented x 3 normal cranial nerves, no focal deficits - Patient Status Disposition: Home, Self-Care Condition: Good Functional capacity at discharge: independent ambulation Overall status at discharge: patient is progressing back to baseline - Discharge Instructions Instructions: Chronic Obstructive Pulmonary Disease (DC) Follow Up With: Faviola Thomas APN [Primary Care Provider] - 03/31/19 4:30 pm Jeramie Gao MD [Partnered Physician] - (In 1-2 weeks) - Diet and Activity Activity: increase activity as tolerated Diet: advance to your usual diet
[2019-03-29 11:41] VITALS: BP 124/74
[2019-03-29] MEDS: Ibuprofen 600 MG TABLET PO PRN (15:02)
--- NOTE | 2019-03-31 15:56 | Electrocardiograph Report ---
[address] [address] Test Date: 2019-03-29 Pat Name: Escobar Nicole Department: 113 Room: 3B24 Gender: M Cane Cutter: : 1980 Requested By: Tasneem Harris Order Number: [id number] Reading MD: Tae Horowitz Measurements Intervals [place] Rate: 89 P: 59 [place]: 117 QRS: 59 QRSD: 82 T: 63 QT: 334 QTc: 381 Interpretive Statements SINUS RHYTHM WITH SHORT IA INTERVAL Electronically Signed On 03-31-2019 15:55:10 EDT by Tae Horowitz
== END 2019-03-29 16:52 | disposition home or self-care (01) ==
LOC: EMEROOARM 22:22 → 3BNU 22:22 → SUATTDRO 03-27 00:59 → 3BNU 03-27 02:33
PROVIDERS: ADMIT Pediatrics; ATTEND Internal Medicine

== ENCOUNTER 2021-01-08 17:08 | Inpatient (IN) ==
[2021-01-08 17:49] LABS: Basophils # 0.1 K/mcL (0.0-0.2); Basophils % 0.6 %; Eosinophils # 0.1 K/mcL (0.0-0.6); Eosinophils % 0.7 %; Hematocrit 45.3 % (37.5-50.1); Hemoglobin 15.3 g/dL (12.9-16.9); Immature Granulocytes % 0.8 % (0-4); Lymphocytes # 0.6 K/mcL (0.6-4.6); Lymphocytes % 5.9 %; Mean Corpuscular HGB Conc 33.8 g/dL (31.6-35.5); Mean Corpuscular Hemoglobin 30.7 pg (28.0-33.3); Mean Corpuscular Volume 90.8 fL (83.0-100.0); Mean Platelet Volume 8.6 fL (9.4-12.4); Monocytes # 0.5 K/mcL (0.0-1.3); Monocytes % 4.8 %; Neutrophils # 8.4 K/mcL (1.6-8.9); Platelet Count 266 K/mcL (140-400); Red Blood Count 4.99 M/mcL (4.19-5.50); Red Cell Distribution Width 14.7 % (11.5-14.5); Segmented Neutrophils % 87.2 %; White Blood Count 9.7 K/mcL (4.3-11.1)
[2021-01-08 18:10] LABS: BUN/Creatinine Ratio 11 (6-26); Blood Urea Nitrogen 10 mg/dL (6-20); Carbon Dioxide 23 mEq/L (23-29); Chloride 107 mEq/L (98-107); Glucose 119 mg/dL (70-105); Osmolality,Calculated 286 (280-300); Potassium 3.9 mEq/L (3.5-5.1); Sodium 138 mEq/L (136-145); eGFR For African Americans > 60 (> 60); eGFR For Non-African Americans > 60 (> 60)
[2021-01-08 18:11] LABS: Troponin I < 0.03 ng/mL (< 0.04)
[2021-01-08] MEDS ORDERED: Albuterol 2.5 MG/3 ML NEBULIZER IH ONE (18:22)
[2021-01-08] MEDS ORDERED: Ipratropium/Albuterol Neb 3 ML IH ONE (18:22)
[2021-01-08] MEDS ORDERED: methylPREDNISolone 125 MG/2 ML VIAL IVP ONE (18:22)
[2021-01-08 18:51] LABS: INR 1.1; Prothrombin Time 12.5 Seconds (9.4-12.1)
[2021-01-08 20:39] LABS: ABG Base Excess 0 mEq/L (-2 to 3); ABG HCO3 24 mEq/L (21-27); ABG Oxygen Saturation 99 % (95-98); ABG PCO2 34 mmHg (35-45); ABG PH 7.45 pH Units (7.32-7.45); ABG PO2 116 mmHg (85-104); ABG TCO2 25 mEq/L (20-26)
[2021-01-09] MEDS ORDERED: Naloxone 0.4 MG/ML INJ IVP PRN (06:15)
[2021-01-09] MEDS ORDERED: *HR* Dextrose 50 % in Water (Vial) 50 ML VIAL IVP PRN (06:17)
[2021-01-09] MEDS ORDERED: Dextrose Gel 15 GM/37.5 ML TUBE PO PRN ×2 (06:17)
[2021-01-09] MEDS ORDERED: D5% in Water 1,000 ML IVC PRN (06:17)
[2021-01-09] MEDS ORDERED: methylPREDNISolone 125 MG/2 ML VIAL IVP SCH (08:00)
[2021-01-09] MEDS: Insulin LISPRO 300 UNITS/3 ML VIAL SUBQ SCH ×4 (08:40→19:48)
[2021-01-09 11:29] LABS: Bilirubin,Direct 0.1 mg/dL (0.0-0.2); Bilirubin,Indirect 0.5 mg/dL (0.0-1.0); Bilirubin,Total 0.6 mg/dL (0.3-1.0)
[2021-01-09] MEDS: Ipratropium/Albuterol Neb 3 ML IH SCH ×3 (11:30→22:17)
[2021-01-09] MEDS: lamoTRIgine 100 MG TABLET PO SCH (13:33)
[2021-01-09] MEDS: Doxycycline 100 MG in 0.9 % Sodium Chloride Mini Bag 100 ML IVPB SCH ×2 (13:33→19:53)
[2021-01-09] MEDS: ALPRAZolam 1 MG TABLET PO PRN ×2 (13:34→20:04)
[2021-01-09] MEDS: Sulfamethoxazole/Trimeth DS 1 EACH TABLET PO SCH ×3 (13:34→20:05)
[2021-01-09] MEDS: hydroCHLOROthiazide 25 MG TABLET PO SCH (13:34)
[2021-01-09] MEDS: ROFLUMILAST 250 MCG PO SCH (13:46)
[2021-01-09] MEDS: MethylPREDNISolone 40 MG/ML VIAL IVP SCH ×2 (17:30→23:08)
[2021-01-09] MEDS: Acetaminophen 325 MG TABLET PO PRN (17:31)
[2021-01-09] MEDS: carvediloL 6.25 MG TABLET PO SCH (19:53)
[2021-01-09] MEDS: Budesonide/Formoterol 160/4.5 1 PUFF INH IH SCH (22:17)
[2021-01-09 23:43] LABS: Adenovirus Not Detected (Not Detect); Bordetella Pertussis Not Detected (Not Detect); Chlamydophila pneumoniae Not Detected (Not Detect); Coronavirus 229E Not Detected (Not Detect); Coronavirus HKU1 Not Detected (Not Detect); Coronavirus NL63 DETECTED (Not Detect); Coronavirus OC43 Not Detected (Not Detect); Human Metapneumovirus Not Detected (Not Detect); Human Rhinovirus/Enterovirus Not Detected (Not Detect); Influenza A Subtype 2009 H1 Not Detected (Not Detect); Influenza B Not Detected (Not Detect); Mycoplasma pneumoniae Not Detected (Not Detect); Parainfluenza Virus 1 Not Detected (Not Detect); Parainfluenza Virus 2 Not Detected (Not Detect); Parainfluenza Virus 3 Not Detected (Not Detect); Parainfluenza Virus 4 Not Detected (Not Detect); Respiratory Syncytial Virus Not Detected (Not Detect)
[2021-01-10 02:08] LABS: Basophils % 0.2 %; Hematocrit 44.5 % (37.5-50.1); Hemoglobin 15.1 g/dL (12.9-16.9); Immature Granulocytes % 0.8 % (0-4); Lymphocytes # 0.6 K/mcL (0.6-4.6); Lymphocytes % 3.1 %; Mean Corpuscular HGB Conc 33.9 g/dL (31.6-35.5); Mean Corpuscular Hemoglobin 31.1 pg (28.0-33.3); Mean Corpuscular Volume 91.6 fL (83.0-100.0); Mean Platelet Volume 9.3 fL (9.4-12.4); Monocytes # 0.5 K/mcL (0.0-1.3); Monocytes % 2.7 %; Neutrophils # 16.9 K/mcL (1.6-8.9); Platelet Count 264 K/mcL (140-400); Red Blood Count 4.86 M/mcL (4.19-5.50); Red Cell Distribution Width 14.7 % (11.5-14.5); Segmented Neutrophils % 93.2 %
[2021-01-10 02:10] LABS: White Blood Count 18.1 K/mcL (4.3-11.1)
[2021-01-10 02:21] LABS: BUN/Creatinine Ratio 16 (6-26); Blood Urea Nitrogen 14 mg/dL (6-20); Calcium 8.8 mg/dL (8.6-10.3); Carbon Dioxide 23 mEq/L (23-29); Chloride 106 mEq/L (98-107); Glucose 148 mg/dL (70-105); Magnesium 2.1 mg/dL (1.6-2.6); Osmolality,Calculated 285 (280-300); Potassium 4.3 mEq/L (3.5-5.1); Sodium 136 mEq/L (136-145); eGFR For African Americans > 60 (> 60); eGFR For Non-African Americans > 60 (> 60)
[2021-01-10] MEDS: Ipratropium/Albuterol Neb 3 ML IH SCH ×4 (03:18→21:20)
[2021-01-10] MEDS: *HR* Enoxaparin 40 MG/0.4 ML SYRINGE SQ SCH (05:26)
[2021-01-10] MEDS: Doxycycline 100 MG in 0.9 % Sodium Chloride Mini Bag 100 ML IVPB SCH ×2 (07:51→21:25)
[2021-01-10] MEDS: lamoTRIgine 100 MG TABLET PO SCH (07:52)
[2021-01-10] MEDS: carvediloL 6.25 MG TABLET PO SCH ×2 (07:52→21:23)
[2021-01-10] MEDS: Sulfamethoxazole/Trimeth DS 1 EACH TABLET PO SCH ×3 (07:52→21:53)
[2021-01-10] MEDS: ROFLUMILAST 250 MCG PO SCH (08:02)
[2021-01-10] MEDS: hydroCHLOROthiazide 25 MG TABLET PO SCH (08:12)
[2021-01-10] MEDS: MethylPREDNISolone 40 MG/ML VIAL IVP SCH ×2 (08:13→16:29)
[2021-01-10] MEDS: Insulin LISPRO 300 UNITS/3 ML VIAL SUBQ SCH ×4 (08:13→21:24)
[2021-01-10] MEDS: Budesonide/Formoterol 160/4.5 1 PUFF INH IH SCH ×2 (10:31→21:20)
[2021-01-10] MEDS: Acetaminophen 325 MG TABLET PO PRN ×2 (13:37→21:57)
[2021-01-10] MEDS: ALPRAZolam 1 MG TABLET PO PRN ×2 (13:38→21:56)
[2021-01-10] MEDS ORDERED: Acetaminophen IV 500 MG/50 ML BAG IVPB ONE (16:41)
[2021-01-10] MEDS ORDERED: GuaiFENesin Liq 200 MG/10 ML UDC PO ONE (16:42)
[2021-01-11] MEDS: MethylPREDNISolone 40 MG/ML VIAL IVP SCH ×3 (00:39→15:19)
[2021-01-11] MEDS: Ipratropium/Albuterol Neb 3 ML IH SCH ×4 (03:36→23:13)
[2021-01-11] MEDS: *HR* Enoxaparin 40 MG/0.4 ML SYRINGE SQ SCH (05:34)
[2021-01-11] MEDS: lamoTRIgine 100 MG TABLET PO SCH (07:54)
[2021-01-11] MEDS: Sulfamethoxazole/Trimeth DS 1 EACH TABLET PO SCH ×3 (07:54→20:20)
[2021-01-11] MEDS: hydroCHLOROthiazide 25 MG TABLET PO SCH (07:54)
[2021-01-11] MEDS: Doxycycline 100 MG in 0.9 % Sodium Chloride Mini Bag 100 ML IVPB SCH ×2 (07:55→20:15)
[2021-01-11] MEDS: carvediloL 6.25 MG TABLET PO SCH ×2 (07:55→20:18)
[2021-01-11] MEDS: ROFLUMILAST 250 MCG PO SCH (07:55)
[2021-01-11] MEDS: ALPRAZolam 1 MG TABLET PO PRN (08:08)
[2021-01-11] MEDS: Insulin LISPRO 300 UNITS/3 ML VIAL SUBQ SCH ×4 (08:09→20:18)
[2021-01-11] MEDS: Budesonide/Formoterol 160/4.5 1 PUFF INH IH SCH ×2 (10:04→23:15)
[2021-01-11] MEDS: Divalproex (12 HR) 250 MG TABLET PO SCH (10:45)
[2021-01-11] MEDS: Acetaminophen 325 MG TABLET PO PRN (15:22)
[2021-01-11] MEDS: Loratadine 10 MG TABLET PO SCH (20:18)
[2021-01-12] MEDS: MethylPREDNISolone 40 MG/ML VIAL IVP SCH ×2 (00:06→07:51)
[2021-01-12] MEDS: Ondansetron 4 MG/2 ML VIAL IVP PRN ×2 (03:19→18:56)
[2021-01-12] MEDS: Ipratropium/Albuterol Neb 3 ML IH SCH ×4 (03:51→23:04)
[2021-01-12] MEDS: *HR* Enoxaparin 40 MG/0.4 ML SYRINGE SQ SCH (05:53)
[2021-01-12 06:50] LABS: Basophils % 0.1 %; Hematocrit 44.2 % (37.5-50.1); Hemoglobin 14.6 g/dL (12.9-16.9); Immature Granulocytes % 1.1 % (0-4); Lymphocytes # 0.6 K/mcL (0.6-4.6); Mean Corpuscular Hemoglobin 29.9 pg (28.0-33.3); Mean Corpuscular Volume 90.6 fL (83.0-100.0); Mean Platelet Volume 9.1 fL (9.4-12.4); Monocytes % 4.9 %; Platelet Count 267 K/mcL (140-400); Red Blood Count 4.88 M/mcL (4.19-5.50); Red Cell Distribution Width 14.7 % (11.5-14.5); Segmented Neutrophils % 90.9 %; White Blood Count 19.8 K/mcL (4.3-11.1)
[2021-01-12] MEDS: Insulin LISPRO 300 UNITS/3 ML VIAL SUBQ SCH ×4 (07:42→20:45)
[2021-01-12] MEDS: Doxycycline 100 MG in 0.9 % Sodium Chloride Mini Bag 100 ML IVPB SCH ×2 (07:51→19:53)
[2021-01-12] MEDS: Divalproex (12 HR) 250 MG TABLET PO SCH (07:52)
[2021-01-12] MEDS: Sulfamethoxazole/Trimeth DS 1 EACH TABLET PO SCH (07:52)
[2021-01-12] MEDS: carvediloL 6.25 MG TABLET PO SCH ×2 (07:52→19:52)
[2021-01-12] MEDS: lamoTRIgine 100 MG TABLET PO SCH (07:52)
[2021-01-12] MEDS: ROFLUMILAST 250 MCG PO SCH (07:52)
[2021-01-12] MEDS: Loratadine 10 MG TABLET PO SCH ×2 (07:52→19:53)
[2021-01-12] MEDS: hydroCHLOROthiazide 25 MG TABLET PO SCH (07:52)
[2021-01-12] MEDS: Fluticasone Propionate Nasal 50 MCG/SPRAY BOTTLE NS SCH (08:50)
[2021-01-12] MEDS: Budesonide/Formoterol 160/4.5 1 PUFF INH IH SCH ×2 (12:15→23:04)
[2021-01-12] MEDS ORDERED: MethylPREDNISolone 40 MG/ML VIAL IVP SCH (18:00)
[2021-01-12] MEDS: Acetaminophen 325 MG TABLET PO PRN (18:58)
[2021-01-12] MEDS: ALPRAZolam 1 MG TABLET PO PRN (19:52)
[2021-01-13] MEDS: Ipratropium/Albuterol Neb 3 ML IH SCH ×3 (05:15→15:26)
[2021-01-13] MEDS: *HR* Enoxaparin 40 MG/0.4 ML SYRINGE SQ SCH (06:35)
[2021-01-13] MEDS: Fluticasone Propionate Nasal 50 MCG/SPRAY BOTTLE NS SCH (07:57)
[2021-01-13] MEDS: hydroCHLOROthiazide 25 MG TABLET PO SCH (07:58)
[2021-01-13] MEDS: carvediloL 6.25 MG TABLET PO SCH (07:58)
[2021-01-13] MEDS: Insulin LISPRO 300 UNITS/3 ML VIAL SUBQ SCH ×3 (07:58→17:36)
[2021-01-13] MEDS: lamoTRIgine 100 MG TABLET PO SCH (07:58)
[2021-01-13] MEDS: Loratadine 10 MG TABLET PO SCH (07:58)
[2021-01-13] MEDS: Doxycycline 100 MG in 0.9 % Sodium Chloride Mini Bag 100 ML IVPB SCH (07:59)
[2021-01-13] MEDS: Divalproex (12 HR) 250 MG TABLET PO SCH (07:59)
[2021-01-13] MEDS: ROFLUMILAST 250 MCG PO SCH (08:00)
[2021-01-13] MEDS ORDERED: predniSONE 20 MG TABLET PO SCH (09:00)
[2021-01-13] MEDS: Budesonide/Formoterol 160/4.5 1 PUFF INH IH SCH (11:01)
[2021-01-13 14:46] VITALS: BP 150/92
[2021-01-13] MEDS: ALPRAZolam 1 MG TABLET PO PRN (17:48)
[2021-01-14] MEDS ORDERED: Sulfamethoxazole/Trimeth DS 1 EACH TABLET PO SCH (09:00)
== END 2021-01-13 18:22 | disposition home or self-care (01) | DRG 140 ==
LOC: EMEROOARM 17:08 → 3BNU 17:08 → SUATTDRO 01-09 06:17 → 3BNU 01-09 06:53 → SUATTDRO 01-09 16:39
PROVIDERS: ADMIT Internal Medicine; ATTEND Internal Medicine